=== PATIENT | male | born 1980 | race Caucasian/White ===

== ENCOUNTER 2023-08-10 23:11 | Emergency (ER) | payer OTHER ==
[2023-08-11 00:11] LABS: CORONAVIRUS COVID-19 NAA NEGATIVE (NEGATIVE); INFLUENZA A NAA POSITIVE (NEGATIVE)
[2023-08-11] MEDS ORDERED: Acetaminophen 325 MG Tab PO ONE (00:54)
[2023-08-11] MEDS ORDERED: Ibuprofen 600 MG Tab PO ONE (00:54)
== END 2023-08-11 01:39 | disposition home or self-care (01) ==
LOC: JD.ED 23:11
DX: J10.1 Influenza due to other identified influenza virus with other respiratory manifestations (principal); Z20.822 Contact with and (suspected) exposure to COVID-19; Z86.16 Personal history of COVID-19
CPT/HCPCS: 0240U; 99284; A9270